=== PATIENT | female | born 1990 | race Caucasian/White ===

== ENCOUNTER 2019-05-24 15:11 | Emergency (ER) | payer OTHER ==
[~2019-05-24] VITALS: Ht 170.2 cm; Wt 93.0 kg
[~2019-05-24 15:11] MED LIST: CARAFATE 1 GM TA1 GM PO; MIRENA1 EACH
[2019-05-24] MEDS ORDERED: ZANTAC 150MG T150 MG PO (15:21)
[2019-05-24 17:34] LABS: ABSOLUTE NEUTROPHILS 4.1 thou/uL (1.4-8.2); BASOPHILS 0.4 % (0.0-2.0); EOSINOPHILS 0.5 % (0.0-3.0); HEMATOCRIT 40.6 % (37.0-47.0); LYMPHOCYTES 29.8 % (24.0-44.0); MCH 29.5 pg (26.0-34.0); MCHC 34.4 g/dL (28.0-37.0); MCV 85.6 fL (80.0-100.0); PLATELET COUNT 224 thou/uL (150-400); POLYS 63.3 % (36.0-66.0); RBC 4.74 mil/uL (4.20-5.00); WBC 6.5 thou/uL (4.0-11.0)
[2019-05-24 17:38] LABS: CALCIUM 9.2 mg/dL (8.5-10.1); CREATININE 0.7 mg/dL (0.6-1.0); POTASSIUM 3.5 mmol/L (3.5-5.1)
[2019-05-24 17:44] LABS: ALBUMIN 4.4 g/dL (3.4-5.0); DIRECT BILIRUBIN 0.1 mg/dL (<0.1-0.3); TOTAL BILIRUBIN 0.5 mg/dL (<0.1-1.0); TOTAL PROTEIN 7.9 g/dL (6.4-8.2)
[2019-05-24 18:02] LABS: URINE BILIRUBIN NEGATIVE (Negative); URINE BLOOD NEGATIVE (Negative); URINE CLARITY CLEAR; URINE COLOR YELLOW; URINE GLUCOSE-RANDOM* NEGATIVE (Negative); URINE KETONES 2+ (Negative); URINE LEUKOCYTES NEGATIVE (Negative); URINE NITRITE NEGATIVE (Negative); URINE PROTEIN (DIPSTICK) NEGATIVE (Negative); URINE UROBILINOGEN 0.2 E.U./dl (0.2-1.0)
[2019-05-24 19:42] VITALS: BP 125/77
--- NOTE | 2019-05-25 10:54 | EKG ---
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
[2019-06-03] MEDS ORDERED: MACROBID 100 M100 M2 PO (10:44)
== END 2019-05-24 19:42 | disposition home or self-care (01) ==
LOC: ER 15:11
PROVIDERS: Physician Assistant
DX: K30 Functional dyspepsia (principal); R00.2 Palpitations; Z90.49 Acquired absence of other specified parts of digestive tract

== ENCOUNTER → 2019-06-05 | Outpatient (CLI) | payer OTHER ==
[~2019-06-05] VITALS: Ht 170.2 cm; Wt 92.1 kg
[~2019-06-05] MED LIST changes: +MACROBID 100 M100 M2 PO; +ZANTAC 150MG T150 MG PO
--- NOTE | 2019-06-06 16:06 | PATH ---
[facility] [place] [address] PATHOLOGY RPT PROCEDURE Name: RIGO MOLINA Room #: REG JESUS Booth.#: [id number] Admission: 06/05/19 Date of : 88 Discharge: Report #: [id number] Path Case #: [id number] [facility] Accession Number: [id number] . 01 Material submitted: . PART A: duodenum - BIOPSY DUODENUM R/O CELIAC SPRUE PART B: stomach - GASTRIC BIOPSY R/O H PYLORI HX ABD PAIN PART C: esophagus - BIOPSY SQUAMOUS PAPILLOMA ESOPHAGUS . 01 Clinical history: . Pre-OP DX: GERD, abdominal pain, noncardiac CP, diarrhea Post-OP DX: Chest pain, squamous papilloma Hx abdominal pain . 02 Diagnosis: A. Small bowel, duodenum, biopsy: - Small bowel mucosa with mild chronic inflammation. - Normal villous architecture. . B. Stomach, biopsy: - Chronic superficial gastritis, mild. - No evidence of Helicobacter pylori on immunoperoxidase stain. . C. Esophagus, biopsy: - Squamous papilloma, three fragments. . (SKM:brian; 06/06/2019) QLM/06/06/2019 . 02 Electronically signed: . Jose Juan Kendall MD, Pathologist NPI- [id number] . 01 Gross description: . A. Received in formalin labeled "Rigo Molina, BX duodenum, rule out celiac sprue," are 6 segments of casas soft tissue measuring 1.1 x 0.9 x 0.2 cm in aggregate dimensions and ranging from 0.3 to 0.7 cm in maximum dimension. The specimen is submitted entirely in cassette A1. . B. Received in formalin labeled "Rgio Molina, gastric BX, rule out H. pylori," are 5 segments of casas soft tissue measuring 1.1 x 0.9 x 0.3 cm in aggregate dimensions and ranging from 0.3 to 0.5 cm in maximum dimension. The specimen is submitted entirely in cassette B1. . C. Received in formalin labeled "Rigo Molina, BX squamous papilloma esophagus," are 3 segments of casas soft tissue measuring 0.6 x 0.5 x 0.1 cm in aggregate dimensions and ranging from 0.3 to 0.4 cm in maximum [address] [address] PATHOLOGY RPT PROCEDURE Name: RIGO MOLINA Room #: REG [facility] Myrna#: [id number] Admission: 06/05/19 Date of : 88 Discharge: Report #: [id number] Path Case #: [id number] dimension. The specimen is submitted entirely in cassette C1. (TSD; 06/05/2019) TOB/TOB . 02 Pathologist provided ICD-10: K29.80, K29.50, D13.0 . 02 CPT . 666530, 635959, 157695 Specimen Comment: A courtesy copy of this report has been sent to Specimen Comment: [phone], . Specimen Comment: Report sent to and Specimen Comment: A duplicate report has been generated due to demographic updates. Performed at: [address], [place] [id number] MD Ravinder Duque MD Phone: [phone] Performed at: [address] [id number] MD Patricia Mike MD Phone: [phone]
--- NOTE | 2019-06-07 11:03 | P ---
[facility] [place] [address] [address] [place] [address] PROCEDURE REPORT Name: ALTON KOHLER Shasha Room #: REG JESUS Norris#: [id number] Admission: 06/05/19 Attend Phys: Delvis Cesar Discharge: Date of : 88 Report #: [id number] THIS REPORT FOR: //name// CC: Jaswant Ortiz DATE OF SERVICE: 06/05/2019 PROCEDURE PERFORMED: Upper endoscopy with biopsies. HISTORY OF PRESENT ILLNESS: The patient is a 29-year-old female began having chest pain, right upper shoulder pain as well as a few episodes of diarrhea and some dysphagia, on 05/18/2019. No previous history of reflux. She was evaluated in the Emergency Room. Apparently, EKG, chest x-ray were negative. She had a GI cocktail, which improved her symptoms, originally started on Prilosec, but this was discontinued due to palpitations and patient feeling disoriented. She was later placed on Zantac b.i.d. She has been on this for the last couple of weeks. She does report improvement in her symptoms significantly. She now denies any dysphagia. She reports diarrhea at times, some nausea initially, but that has now resolved. No history of emesis. Her bowel movements have been fairly normal recently. No bleeding. No family history of colon cancer. DESCRIPTION OF PROCEDURE: The risks and benefits of the procedure were explained to the patient, those risks including but not limited to bleeding, perforation and the risk of sedation. She understood these risks and gave informed consent. Sedation was given using propofol per anesthesia. Next, using a standard Olympus upper endoscope, the scope was placed in the patient's mouth and advanced under direct vision through the esophagus, stomach and into the second portion of the duodenum. The larynx was normal in appearance. In the upper esophagus, a small, likely a papilloma was noted. This was removed with the biopsy forceps. It was approximately 2-3 mm in size. The mid and distal esophagus were normal. The GE junction was normal. No evidence of esophagitis. Overall, the gastric mucosa was normal. Because of the patient's symptoms, biopsies were obtained to rule out H. pylori. The pylorus was normal and patent. The duodenal bulb, first and second portion were all normal. Biopsies were obtained to rule out the possibility of celiac sprue. The scope was then withdrawn and the procedure terminated. The patient tolerated the procedure well. IMPRESSION: 1. Small, likely papilloma in upper esophagus, removed with biopsy forceps. 2. Otherwise, normal upper endoscopy. RECOMMENDATIONS: [address] [address] PROCEDURE REPORT Name: ALTON KOHLER Room #: REG JESUS Norris#: [id number] Admission: 06/05/19 Attend Phys: Delvis Cesar Discharge: Date of : 88 Report #: [id number] 1. Await biopsy results. 2. Suspect the patient's symptoms are due to gastroesophageal reflux. The patient has no esophagitis. She is dramatically improved on Zantac, would continue this regimen at this time, could consider discontinuing it in the future, if she has recurrent symptoms can always restart Zantac as well. Thank you for allowing me to participate in her care. <ELECTRONICALLY SIGNED> By: Delvis Ortiz MD 06/07/19 1103 0939 2209 Delvis Ortiz MD /nt
== END | disposition home or self-care (01) ==
LOC: GI 07:15
DX: D13.0 Benign neoplasm of esophagus (principal); K29.50 Unspecified chronic gastritis without bleeding; K29.80 Duodenitis without bleeding; K21.9 Gastro-esophageal reflux disease without esophagitis; Z90.49 Acquired absence of other specified parts of digestive tract; Z79.899 Other long term (current) drug therapy
CPT/HCPCS: 62110; 62900

== ENCOUNTER → 2019-06-12 | Outpatient (CLI) | payer OTHER ==
--- NOTE | 2019-06-12 10:04 | 2DMMODE ---
[facility] [place] [address] 2 D/M-MODE ECHOCARDIOGRAM Name: ALTON KOHLER Room #: REG [facility]#: [id number] Admission: 06/12/19 Attend Phys: AIDAN Jimenez Discharge: Date of : 88 Date of Service: 06/12/19 1004 Report #: [id number] THIS REPORT FOR: //name// APPROVED REPORT Study performed: 06/12/2019 08:00:04 EXAM: Comprehensive 2D, Doppler, and color-flow Echocardiogram Patient Location: Out-Patient Status: routine BSA: 2.04 HR: 60 bpm BP: 126/90 mmHg Rhythm: NSR Other Information Study Quality: Adequate Indications Palpitations. 2D Dimensions RVDd: 35.72 mm IVSd: 9.14 (7-11mm) LVOT Diam: 20.04 (18-24mm) LVDd: 46.36 mm PWd: 9.61 (7-11mm) Ascending Ao: 26.32 (22-36mm) LVDs: 25.35 (25-40mm) Aortic Root: 26.05 mm Volumes Left Atrial Volume (Systole) Single Plane 4CH: 65.68 mL Single Plane 2CH: 58.44 mL LA ESV Index: 34.00 mL/m2 Aortic Valve AoV Peak Dominik.: 1.62 m/s AO Peak Gr.: 10.54 mmHg LVOT Max P.98 mmHg LVOT Max V: 1.32 m/s SKY Vmax: 2.56 cm2 Mitral Valve E/A Ratio: 1.4 MV Decel. Time: 251.52 ms MV E Max Dominik.: 1.10 m/s [facility] [address] [place] [address] 2 D/M-MODE ECHOCARDIOGRAM Name: ALTON KOHLER Room #: [facility]#: [id number] Admission: 06/12/19 Attend Phys: AIDAN Jimenez Discharge: Date of : 88 Date of Service: 06/12/19 1004 Report #: [id number] MV A Dominik.: 0.81 m/s MV PHT: 72.94 ms IVRT: 50.75 ms Pulmonary Valve PV Peak Dominik.: 1.09 m/s PV Peak Gr.: 4.79 mmHg Pulmonary Vein P Vein S: 0.74 m/s P Vein A: 0.31 m/s P Vein D: 0.54 m/s P Vein A Dur.: 106.1 msec P Vein S/D Ratio: 1.37 Tricuspid Valve TR Peak Dominik.: 2.45 m/s RAP Estimate: 5.00 mmHg TR Peak Gr.: 24.00 mmHg PA Pressure: 29.00 mmHg Left Ventricle The left ventricle is normal size. There is normal LV segmental wall motion. There is normal left ventricular wall thickness. Left ventricular systolic function is normal. LVEF is 60-65%. The left ventricular diastolic function is normal. Right Ventricle The right ventricle is normal size. The right ventricular systolic function is normal. Atria The left atrium size is normal. The right atrium size is normal. Aortic Valve The aortic valve is normal in structure. No aortic regurgitation is present. There is no aortic valvular stenosis. Mitral Valve The mitral valve is normal in structure. Trace to mild mitral regurgitation. Tricuspid Valve The tricuspid valve is normal in structure. Trace to mild tricuspid regurgitation. Estimated PAP is 30mmHg. Pulmonic Valve The pulmonary valve is normal in structure. Trace pulmonic regurgitation. [facility] [address] [place] [address] 2 D/M-MODE ECHOCARDIOGRAM Name: ALTON KOHLER [facility] [id number] Admission: 06/12/19 Attend Phys: AIDAN Jimenez Discharge: Date of : 88 Date of Service: 06/12/19 1004 Report #: [id number] Great Vessels The aortic root is normal in size. The ascending aorta is normal in size. IVC is normal in size and collapses >50% with inspiration. Pericardium There is no pericardial effusion. <Conclusion> The left ventricle is normal size. LVEF is 60-65%. The aortic valve is normal in structure. The mitral valve is normal in structure. Trace to mild mitral regurgitation. The tricuspid valve is normal in structure. Trace to mild tricuspid regurgitation. Estimated PAP is 30mmHg. The pulmonary valve is normal in structure. There is no pericardial effusion. <ELECTRONICALLY SIGNED> By: Felipe Mcintyre MD 06/12/19 1004 1004 1004 Felipe Mcintyre MD /INF
== END ==
LOC: CV 07:52
DX: I08.1 Rheumatic disorders of both mitral and tricuspid valves (principal); R10.11 Right upper quadrant pain; Z90.49 Acquired absence of other specified parts of digestive tract

== ENCOUNTER 2019-07-14 23:15 | Emergency (ER) | payer OTHER ==
[~2019-07-14] VITALS: Ht 170.2 cm; Wt 90.3 kg
[2019-07-15 00:27] LABS: ABSOLUTE NEUTROPHILS 4.3 thou/uL (1.4-8.2); BASOPHILS 0.4 % (0.0-2.0); EOSINOPHILS 0.8 % (0.0-3.0); HEMOGLOBIN 13.4 gm/dL (12.0-15.0); LYMPHOCYTES 30.7 % (24.0-44.0); MCH 29.5 pg (26.0-34.0); MCHC 33.4 g/dL (28.0-37.0); MCV 88.3 fL (80.0-100.0); MONOCYTES 5.2 % (1.0-8.0); PLATELET COUNT 181 thou/uL (150-400); POLYS 62.9 % (36.0-66.0); RBC 4.54 mil/uL (4.20-5.00); RDW 13.8 % (10.5-14.5); WBC 6.9 thou/uL (4.0-11.0)
[2019-07-15 00:33] LABS: ANION GAP 8 mmol/L (7-16); BUN 8 mg/dL (7-18); CALCIUM 9.4 mg/dL (8.5-10.1); CHLORIDE 105 mmol/L (98-107); CO2 29 mmol/L (21-32); CREATININE 0.7 mg/dL (0.6-1.0); GLUCOSE 101 mg/dL (74-106); POTASSIUM 3.8 mmol/L (3.5-5.1); SODIUM 142 mmol/L (136-145)
[2019-07-15 00:43] LABS: ALBUMIN 4.3 g/dL (3.4-5.0); MAGNESIUM 1.9 mg/dL (1.8-2.4); SGOT 9 U/L (15-37); SGPT 12 U/L (30-65); TOTAL BILIRUBIN 0.7 mg/dL (<0.1-1.0); TOTAL PROTEIN 7.6 g/dL (6.4-8.2); TROPONIN-I <0.06 ng/mL (<0.06)
[2019-07-15 01:11] VITALS: BP 118/76
--- NOTE | 2019-07-16 14:00 | EKG ---
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
== END 2019-07-15 01:04 | disposition home or self-care (01) ==
LOC: ER 23:15
PROVIDERS: Emergency Medicine
DX: R07.89 Other chest pain (principal); Z90.49 Acquired absence of other specified parts of digestive tract; Z98.890 Other specified postprocedural states; Z88.0 Allergy status to penicillin